=== PATIENT | female | born 1995 | race Caucasian/White ===

== ENCOUNTER 2021-05-27 03:19 | Day surgery (SDC) | payer BC, SELFPAY ==
[2021-05-10 13:42] VITALS: BMI 28.6
[2021-05-27] MEDS: LACTATED RINGERS 1,000 ML 150 ML IV CONT (06:44)
[2021-05-27 06:45] VITALS: BP 115/69; PULSE 107; RESP 18; TEMP 36.6; O2SAT 100
--- NOTE | 2021-05-27 07:06 | WPDANESEPPF ---
Anes - Initial Pre Proc Eval Procedure: Operation Date: 05/27/21 07:30 Proposed Procedures p Esophagogastroduodenoscopy - Prasad Walsh MD Date/Time: 05/27/21 07:06 Surgeon: Prasad Walsh MD Pre Op Diagnosis: GERD Patient Data Age: 26 Gender: F Height: 1.65 m Weight: 78.5 kg Last Vital Signs Temp 36.6 C 05/27/21 06:45 Pulse 107 H 05/27/21 06:45 Resp 18 05/27/21 06:45 BP 115/69 05/27/21 06:45 Pulse Ox 100 05/27/21 06:45 Allergies Allergy/AdvReac Type Severity Reaction Status Date / Time Penicillins Allergy Mild Unknown Verified 05/27/21 06:36 Sulfa (Sulfonamide Allergy Mild unk Verified 05/27/21 06:36 Antibiotics) Home Medications Medication Instructions Recorded Confirmed Type alprazolam 0.5 mg tablet 0.5 mg PO DAILY PRN 04/18/21 05/10/21 History tretinoin 0.05 % topical gel 1 applic TOPICAL QHS 04/18/21 05/10/21 History omeprazole 40 mg capsule,delayed 20 mg PO DAILY cap 04/21/21 05/10/21 History release sertraline 100 mg tablet 100 mg PO DAILY 04/21/21 05/10/21 History sertraline 50 mg tablet 50 mg PO DAILY 04/21/21 05/10/21 History Patient hx anesthesia problems: none Family hx anesthesia problems: none Results Review: All pre-operative results and documents have been reviewed as part of the pre-operative evaluation. [facility] Past Medical History Medical History Allergies Anxiety Social History Social History Smoking status: Never smoker Alcohol intake: current Drinks per week: 5 Substance use: never Living arrangements: with family Spiritual care concerns: No Anes - Eval Final PreProcedure Day of Procedure 05/27/21 07:06 Patient weight: overweight Heart: regular rate and rhythm Lungs: clear to auscultation Airway: Mallampati scale class II Neurological: alert and oriented Last oral intake: >/= 8 hours ASA classification: II Emergent: no Anesthesia type and monitoring: general GIVS and standard monitoring Results Review: All pre-operative results and documents have been reviewed as part of the pre-operative evaluation. Informed Consent: The patient's anesthetic plan and its attendant risks and benefits were discussed with the patient/family/POA. Questions were solicited and answers provided to the satisfaction of the patient/family/POA.
[2021-05-27] MEDS: MIDAZOLAM HCL (*CRX) 2 MG/2 ML VIAL IV PUSH (07:08)
--- NOTE | 2021-05-27 07:21 | PM.HPGS ---
History of Present Illness History of Present Illness Consent: Risks, benefits, and alternatives have been discussed and questions answered. Patient agrees to proceed with procedure. Chief complaint: GERD Narrative: Lynnette Lucio is a 26 year old female with gerd on omeprazole Review of Systems Constitutional: Constitutional: Denies headache(s) and Denies weakness Eyes: Eyes: Denies blurry vision ENT: Reports Normal hearing present, Denies headache(s) and Denies neck pain Cardiovascular: Cardiovascular: Denies chest pain and Denies dyspnea Respiratory: Respiratory: Denies dyspnea Gastrointestinal: Gastrointestinal: Reports no additional gastrointestinal complaints Genitourinary: Genitourinary: Denies dysuria Musculoskeletal: Musculoskeletal: Denies neck pain Integumentary/Breasts: Skin/Breast: Denies dry skin Neurologic: Reports Normal hearing present, Denies headache(s) and Denies weakness Psychiatric: Psychiatric: Denies anxiety Endocrine: Endocrine: Denies change in body appearance Hematologic/Lymphatic: Hematologic/Lymphatic: Denies easy bleeding Allergic/Immunologic: Allergic/Immunologic: Denies urticaria PMFSH Past Medical History Medical History Allergies Anxiety Social History Social History Smoking status: Never smoker Alcohol intake: current Drinks per week: 5 Substance use: never Living arrangements: with family Spiritual care concerns: No Meds Home Medications and Allergies Home Medications Medication Instructions Recorded Confirmed Type alprazolam 0.5 mg tablet 0.5 mg PO DAILY PRN 04/18/21 05/10/21 History tretinoin 0.05 % topical gel 1 applic TOPICAL QHS 04/18/21 05/10/21 History omeprazole 40 mg capsule,delayed 20 mg PO DAILY cap 04/21/21 05/10/21 History release sertraline 100 mg tablet 100 mg PO DAILY 04/21/21 05/10/21 History sertraline 50 mg tablet 50 mg PO DAILY 04/21/21 05/10/21 History Allergies Allergy/AdvReac Type Severity Reaction Status Date / Time Penicillins Allergy Mild Unknown Verified 05/27/21 06:36 Sulfa (Sulfonamide Allergy Mild unk Verified 05/27/21 06:36 Antibiotics) Vital Signs Vital Signs - 24 hr 05/27/21 06:45 Temperature 98 F Pulse Rate 107 H Respiratory Rate 18 Blood Pressure 115/69 Pulse Oximetry 100 Exam Const: General: comfortable and no acute distress HENMT: General nose exam: Normal nares present Eyes: General: appearance normal, both eyes and all related structures Neck: Neck: no JVD Resp: Auscultation: clear to auscultation bilaterally Cardio: Rate: regular rate Rhythm: regular rhythm GI: Inspection: non-distended GI Palp: Yes Soft to palpation Skin: General skin exam: normal color Neuro: General: gait normal Speech: normal speech Extrem: General: normal to inspection Psych: Mental Status: mental status grossly normal Assessment and Plan Assessment and plan (1) GERD (gastroesophageal reflux disease): Code(s): K21.9 - Gastro-esophageal reflux disease without esophagitis Status: Acute Assessment and Plan: egd with bx
[2021-05-27 07:44] VITALS: BP 101/68; PULSE 79; RESP 22; O2SAT 99
[2021-05-27 07:54] VITALS: BP 111/71; PULSE 78; RESP 24; O2SAT 100
[2021-05-27 08:04] VITALS: BP 114/73; PULSE 73; RESP 21; O2SAT 99
== END 2021-05-27 08:10 | disposition home or self-care (01) ==
PROVIDERS: PCP Nurse Practitioner Adult Health; Visit Provider Internal Medicine Gastroenterology
PROC: 0DJ08ZZ Inspection of Upper Intestinal Tract, Via Natural or Artificial Opening Endoscopic (ICD-10-PCS; CPT 43235; principal; 2021-05-27 07:30)
DX: K21.9 Gastro-esophageal reflux disease without esophagitis (principal); M19.90 Unspecified osteoarthritis, unspecified site
CPT/HCPCS: 43239; 88305; J2250; J2704; J7120

== ENCOUNTER 2022-08-09 10:21 | Outpatient (CLI) | payer BC, SELFPAY ==
[2022-08-09 11:38] LABS: Hematocrit 38.6 % (37.0-47.0); Hemoglobin 13.2 g/dL (12.0-15.0); Mean Corpuscular HGB Conc 34.2 g/dl (32-36); Mean Corpuscular Hemoglobin 29.8 pg (26-34); Mean Corpuscular Volume 87.1 fl (80-100); Mean Platelet Volume 10.2 fl (7.4-10.4); Platelet Count Result 211 k/mm3 (150-375); Red Blood Count 4.43 M/mm3 (4.2-5.4); Red Cell Distribution Width 11.9 % (11.5-14.5)
[2022-08-09 11:54] LABS: Alanine Aminotransferase 20 U/L (6-35); Albumin Level 4.5 g/dL (3.5-5.1); Alkaline Phosphatase 47 U/L (38-126); Anion Gap 6 mmol/L (8-16); Aspartate Amino Transferase 24 U/L (14-36); Bilirubin,Total 0.4 mg/dL (0.2-1.3); Blood Urea Nitrogen 12 mg/dL (7-17); CRP < 0.5 mg/dL (<1.0); Carbon Dioxide 29 mmol/L (22-30); Chloride 98 mmol/L (98-107); Estimated Glomerular Filt Rate > 60; Glucose 78 mg/dL (65-110); Potassium 3.5 mmol/L (3.4-5.0); Sodium 133 mmol/L (137-145)
[2022-08-09 12:47] LABS: Erythrocyte Sedimentation Rate 9 mm/hr (0-20)
== END 2022-08-09 10:22 | disposition home or self-care (01) ==
LOC: ANHLAB 10:23
PROVIDERS: Visit Provider Nurse Practitioner
DX: K58.0 Irritable bowel syndrome with diarrhea (principal)
CPT/HCPCS: 36415; 80053; 84443; 85027; 85652; 86140

== ENCOUNTER 2022-08-16 13:17 | Outpatient (NON) | payer BC, SELFPAY ==
[2022-08-23 23:57] LABS: Calprotectin, Stool 24 mcg/g
[2022-08-24 16:08] LABS: Pancreatic Elastase, Stool 262 mcg/g
== END 2022-08-16 13:18 | disposition home or self-care (01) ==
LOC: ANHLAB 13:19
PROVIDERS: Visit Provider Nurse Practitioner
DX: K58.0 Irritable bowel syndrome with diarrhea (principal)
CPT/HCPCS: 82653; 83993

== ENCOUNTER 2022-11-14 17:04 | Outpatient (CLI) | payer BC, SELFPAY ==
[2022-11-14 18:51] LABS: HIV 1/2 Ab P24 Ag Result Negative (Negative)
[2022-11-14 19:59] LABS: Hepatitis B Surface Antigen Negative (Negative); Rubella IgG Antibody 18.2 IU/ML
[2022-11-15 13:48] LABS: Rapid Plasma Reagin Non-Reactive (NonReactive)
[2022-11-17 09:19] LABS: CMV IgG Antibody <0.60 U/mL (<0.60)
== END 2022-11-14 17:05 | disposition home or self-care (01) ==
PROVIDERS: Visit Provider Student in an Organized Health Care Education/Training Program
DX: N94.89 Other specified conditions associated with female genital organs and menstrual cycle (principal)
CPT/HCPCS: 36415; 84702; 86592; 86644; 86703; 86747; 86762; 86787; 86850; 87086; 87088; 87340; G0432

== ENCOUNTER 2022-12-19 14:00 | Outpatient (CLI) | payer BC, SELFPAY ==
[2022-12-19 14:31] LABS: Basophils Percent Auto 0.3 % (0.2-1.2); Eosinophils Absolute Auto 0.1 K/mm3 (0-0.3); Eosinophils Percent Auto 1.1 % (0-4.4); Hematocrit 35.2 % (37.0-47.0); Hemoglobin 12.1 g/dL (12.0-15.0); Immature Granulocyte Absolute 0.02 K/mm3 (0.00-0.031); Immature Granulocyte Percent A 0.3 % (0-0.5); Lymphocytes Absolute Auto 1.35 K/mm3 (0.9-3.2); Lymphocytes Percent Auto 22.1 % (18.3-44.2); Mean Corpuscular HGB Conc 34.4 g/dl (32-36); Mean Corpuscular Hemoglobin 29.8 pg (26-34); Mean Corpuscular Volume 86.7 fl (80-100); Mean Platelet Volume 10.4 fl (7.4-10.4); Monocytes Absolute Auto 0.3 K/mm3 (0.1-0.6); Monocytes Percent Auto 5.4 % (2.6-8.5); Neutrophils Absolute Auto 4.3 K/mm3 (1.3-6.7); Neutrophils Percent Auto 70.8 % (45.5-73.1); Platelet Count Result 176 k/mm3 (150-375); Red Blood Count 4.06 M/mm3 (4.2-5.4); Red Cell Distribution Width 12.5 % (11.5-14.5); White Blood Count 6.1 K/mm3 (4.5-10.0)
== END 2022-12-19 14:01 | disposition home or self-care (01) ==
LOC: ANHLAB 14:02
PROVIDERS: Visit Provider Student in an Organized Health Care Education/Training Program
DX: N94.89 Other specified conditions associated with female genital organs and menstrual cycle (principal)
CPT/HCPCS: 36415; 85025; 86900; 86901

== ENCOUNTER 2023-04-20 15:01 | Outpatient (CLI) | payer BC, SELFPAY ==
[2023-04-20 16:47] LABS: Basophils Percent Auto 0.2 % (0.2-1.2); Eosinophils Absolute Auto 0.1 K/mm3 (0-0.3); Eosinophils Percent Auto 0.6 % (0-4.4); Hematocrit 32.4 % (37.0-47.0); Hemoglobin 11.2 g/dL (12.0-15.0); Immature Granulocyte Absolute 0.05 K/mm3 (0.00-0.031); Immature Granulocyte Percent A 0.5 % (0-0.5); Lymphocytes Absolute Auto 1.41 K/mm3 (0.9-3.2); Lymphocytes Percent Auto 13.9 % (18.3-44.2); Mean Corpuscular HGB Conc 34.6 g/dl (32-36); Mean Corpuscular Hemoglobin 30.6 pg (26-34); Mean Corpuscular Volume 88.5 fl (80-100); Mean Platelet Volume 10.5 fl (7.4-10.4); Monocytes Absolute Auto 0.6 K/mm3 (0.1-0.6); Neutrophils Percent Auto 78.8 % (45.5-73.1); Platelet Count Result 158 k/mm3 (150-375); Red Blood Count 3.66 M/mm3 (4.2-5.4); Red Cell Distribution Width 12.7 % (11.5-14.5); White Blood Count 10.2 K/mm3 (4.5-10.0)
[2023-04-20 16:56] LABS: Glucose 1 Hour PP 50gm Dose 91 mg/dL
[2023-04-20 17:38] LABS: HIV 1/2 Ab P24 Ag Result Negative (Negative)
== END 2023-04-20 15:02 | disposition home or self-care (01) ==
LOC: ANHLAB 15:03
PROVIDERS: Visit Provider Obstetrics & Gynecology
DX: Z34.90 Encounter for supervision of normal pregnancy, unspecified, unspecified trimester (principal)
CPT/HCPCS: 36415; 82947; 85025; 86703; G0432

== ENCOUNTER 2023-06-22 01:28 | Inpatient (IN) | payer BC, SELFPAY ==
[2023-06-22] VITALS (177 sets, daily range): BP systolic 94–141; BP diastolic 48–88; PULSE 75–141; RESP 18; TEMP 36.3–37.4; O2SAT 95–100; BMI 29.9
--- NOTE | 2023-06-22 02:14 | OBADM ---
This patient, Lynnette Lucio, admitted to the OB room Labor/Delivery/Recovery 107 for observation. Patient/family oriented to hospital policies and general routines including ID bracelet, bed and alarms, visiting hours, pain management, procedures, bathroom and other care routines, personal items, smoking policy, room service/diet, and visiting hours. Patient/Family are encouraged to report perceived risks to care and to ask questions if they do not understand what they are told or what they should do.
--- NOTE | 2023-06-22 03:12 | LDADM ---
This patient, Lynnette Lucio, was admitted to Labor/Delivery/Recovery 107 on 06/22/23 at 02:43. Plans for labor, pain management and were discussed with patient. Patient/family oriented to hospital policies and general routines including ID bracelet, bed and alarms, visiting hours, pain management, procedures, bathroom and other care routines, personal items, smoking policy, room service/diet and guest tray routines, security routines, and visiting hours. Patient/Family are encouraged to report perceived risks to care and to ask questions if they do not understand what they are told or what they should do. See OBIX for further documentation.
[2023-06-22 03:21] LABS: Basophils Percent Auto 0.2 % (0.2-1.2); Eosinophils Percent Auto 0.3 % (0-4.4); Hematocrit 37.5 % (37.0-47.0); Hemoglobin 12.5 g/dL (12.0-15.0); Immature Granulocyte Absolute 0.12 K/mm3 (0.00-0.031); Immature Granulocyte Percent A 0.9 % (0-0.5); Lymphocytes Absolute Auto 2.12 K/mm3 (0.9-3.2); Mean Corpuscular HGB Conc 33.3 g/dl (32-36); Mean Corpuscular Hemoglobin 28.9 pg (26-34); Mean Corpuscular Volume 86.8 fl (80-100); Mean Platelet Volume 10.5 fl (7.4-10.4); Monocytes Absolute Auto 0.8 K/mm3 (0.1-0.6); Monocytes Percent Auto 5.5 % (2.6-8.5); Neutrophils Percent Auto 78.1 % (45.5-73.1); Platelet Count Result 175 k/mm3 (150-375); Red Blood Count 4.32 M/mm3 (4.2-5.4); Red Cell Distribution Width 13.2 % (11.5-14.5); White Blood Count 14.1 K/mm3 (4.5-10.0)
[2023-06-22] MEDS: VANCOMYCIN 1,000 MG/NS 250 ML 1,000 MG/250 ML BAG 250 MG IVPB ×2 (04:45→16:20)
[2023-06-22] MEDS: LACTATED RINGERS 1,000 ML 125 ML IV CONT ×3 (04:45→13:05)
[2023-06-22] MEDS: OXYTOCIN 30 UNITS/NS 500 ML 30 UNITS/500 ML BAG 6 UNITS IV CONT ×2 (08:12→19:29)
--- NOTE | 2023-06-22 09:33 | WPDANESEPP ---
Anes - Eval Pre Procedure Procedure: labor pain managment Date/Time: 06/22/23 09:33 Surgeon: Ethan Preop Diagnosis: pain during labor Pre Op Diagnosis: Leaking Fluid Patient Data Age: 28 Gender: F Height: 1.65 m Weight: 81.647 kg Last Vital Signs Pulse 118 H 06/22/23 09:30 BP 111/70 06/22/23 09:30 O2 Del Method Room Air 06/22/23 03:06 Allergies Allergy/AdvReac Type Severity Reaction Status Date / Time Penicillins Allergy Mild Unknown Verified 06/19/23 08:19 Sulfa (Sulfonamide Allergy Mild unk Verified 06/19/23 08:19 Antibiotics) Home Medications Medication Instructions Recorded Confirmed Type bupropion HCl 150 mg 24 hr tablet, 150 mg PO QAM 08/09/22 06/22/23 History extended release sertraline 100 mg tablet 200 mg PO DAILY 11/13/22 06/22/23 History hydroxyzine HCl 25 mg tablet 25 mg PO TID PRN anxiety #30 tabs 12/11/22 06/22/23 Rx RSV vac, preF A and preF B(PF) 120 0.5 ml IM ONCE #1 ea 05/29/23 06/22/23 Rx mcg/0.5 mL IM solution (Abrysvo) Laboratory Tests 06/22/23 03:02 WBC 14.1 H K/mm3 (4.5-10.0) RBC 4.32 M/mm3 (4.2-5.4) Hgb 12.5 g/dL (12.0-15.0) Hct 37.5 % (37.0-47.0) MCV 86.8 fl (80-100) MCH 28.9 pg (26-34) MCHC 33.3 g/dl (32-36) RDW 13.2 % (11.5-14.5) Plt Count 175 k/mm3 (150-375) MPV 10.5 H fl (7.4-10.4) Immature Gran % (Auto) 0.9 H % (0-0.5) Neut % (Auto) 78.1 H % (45.5-73.1) Lymph % (Auto) 15.0 L % (18.3-44.2) Sully % (Auto) 5.5 % (2.6-8.5) Eos % (Auto) 0.3 % (0-4.4) Baso % (Auto) 0.2 % (0.2-1.2) Lymph # (Auto) 2.12 K/mm3 (0.9-3.2) Sully # (Auto) 0.8 H K/mm3 (0.1-0.6) Eos # (Auto) 0.0 K/mm3 (0-0.3) Baso # (Auto) 0.0 K/mm3 (0.0-0.1) Abs Immat Gran (auto) 0.12 H K/mm3 (0.00-0.031) Absolute Neuts (auto) 11.0 H K/mm3 (1.3-6.7) Absolute Nucleated RBC 0.0 K/mm3 (0.0-0.012) Nucleated RBC % 0.0 % (0.0-0.2) RPR Pending Blood Type A Positive Antibody Screen Negative Patient hx anesthesia problems: none Family hx anesthesia problems: none Results Review: All pre-operative results and documents have been reviewed as part of the pre-operative evaluation. [facility] Past Medical History Medical History Allergies Anxiety Anxiety Irritable bowel syndrome with diarrhea Suppression of menses Family History Family History Grandparent Carcinoma of colon Hypertension Heart disease Social History Social History Smoking status: Never smoker Second hand tobacco smoke exposure: No Alcohol intake: current Drinks per week: 5 Substance use: never Lack of Transportation: No Lack of Food: Never True Current Housing: I Have Housing Concerned About Future Housing: No Difficulty Paying Gas/Electric Bills: No Difficulty Paying for Meds: No Currently Unemployed: No Education: Master's Degree or Higher Difficulty w/ Childcare or Family Care: No Living arrangements: with family Occupation/Education: occupation Gender identity (if verbalized by the patient): Female Sexual Orientation (if Verbalized by the Patient): Straight or Heterosexual Spiritual care concerns: No Exam Day of Procedure 06/22/23 09:33
[2023-06-22 14:01] LABS: Rapid Plasma Reagin Non-Reactive (NonReactive)
--- NOTE | 2023-06-22 19:34 | WPDHPUPDATE1 ---
History and Physical Update Update Date/Time: 06/22/23 19:34 History and Physical has been reviewed, including an updated exam of the patient. There are NO changes in the patient's condition. Risks, benefits, and alternatives have been discussed and questions answered. Patient agrees to proceed with procedure.
--- NOTE | 2023-06-22 19:34 | WPDOBADMIT ---
Obstetrics - Admit Note Admission Note: record reviewed. No pertinent additions to the history and/or any subsequent changes in the physical findings that are not consistent with the expected course of the were found. Additions to the history and/or subsequent changes in the physical findings follow. None.
--- NOTE | 2023-06-22 19:34 | PM.OBPRVD ---
OB - Vaginal Delivery Note Procedure Delivery date: 06/22/23 Events: Premature Rupture of Membranes Induction method: None Delivery augmentation: Rupture of Membranes and Pitocin Delivery monitor: External FHT and Internal Uterine Route of delivery: Episiotomy description: None Laceration Description: Perineal - 2nd Degree Delivery repair: chromic Specimen: Yes Quantitative Blood Loss (ml): 300 Anesthesia type: Epidural Disposition: Floor Complications: No immediate complications Narrative: Patient was prepped and draped in the usual manner this procedure. Maternal expulsive efforts readily delivered vertex and nuchal cord was noted. Baby was delivered through the cord without difficulty, cord was clamped and cut, baby was placed on maternal abdomen. Placenta delivered spontaneously. Uterus was well contracted. Cervix vagina vulva were inspected with second-degree laceration noted. This was approximated using 2-0 chromic and a vaginal tissue running interlocking manner with good approximation noted, subcuticular stitch was then used to approximate the perineum. This point procedure was considered terminated with immediate postop condition of mother baby but excellent. Baby Weeks of gestation at delivery: 36 Infant gender: Male Weight (pounds): 7 Weight (ounces): 5 presentation: vertex position: Right Occiput Anterior Placenta delivery description: Spontaneous Cord Vessel Description: 3 Vessels, Nuchal Cord and Loose score one minute: 7 score five minutes: 9 AMG Delivery Billing Delivery Delivery: Delivery Charge
[2023-06-22] MEDS: IBUPROFEN 600 MG TABLET PO (21:23)
--- NOTE | 2023-06-22 22:00 | OBPPTRN ---
Patient transferred to post room #282 via wheelchair. Support person present. Oriented to unit, room, information board, rooming in, admission packet and security measures. Patient verbalizes understanding.
[2023-06-23 04:00] VITALS: BP 112/72; PULSE 95; RESP 18; TEMP 36.6; O2SAT 100
[2023-06-23 04:48] LABS: Hematocrit 30.4 % (37.0-47.0); Hemoglobin 10.2 g/dL (12.0-15.0)
--- NOTE | 2023-06-23 07:57 | P.DS_ITS ---
DS: Admitting Diagnosis Discharge Date 06/24/2023 Admitting Diagnosis OB - DS: Summary OB Procedures : None OB Procedures Intrapartum: Spontaneous Vag Delivery OB Procedures: : None Peripartum Data Laceration Description: Perineal - 2nd Degree Episiotomy description: None Time Spent with Patient Time attestation: Total time spent providing and/or coordinating discharge services: DS: Data Data Completed and Pending Labs on day of discharge: Labs from last 24 hours 06/23/23 06/22/23 03:34 03:02 Hgb 10.2 L Hct 30.4 L RPR Non-reactive Discharge Plan Discharge Discharging Clinician: Gopal Mooney Patient Disposition: Home, Self-Care Activity: as tolerated Diet: as tolerated Patient Instructions: Antibiotic Form Stand Alone Forms: General Discharge Information Follow-up/Referrals: Amarilis Long MD [Physician] - 3 Weeks Discharge Medications: New ibuprofen 600 mg Tablet 600 mg PO Q6H PRN (Reason: Cramping) Qty: 30 0RF Continued sertraline 100 mg tablet 200 mg PO DAILY bupropion HCl 150 mg tablet extended release 24 hr 150 mg PO QAM Abrysvo 120 mcg/0.5 mL recon soln 0.5 ml IM ONCE Qty: 1 0RF Rx Instructions: as a single dose hydroxyzine HCl 25 mg tablet 25 mg PO TID PRN (Reason: anxiety) Qty: 30 0RF Date of admission: 06/22/23 02:43 Primary Care Provider: PHYSICIAN,WAFER MACHINE OPERATOR Admitting Provider: Amarilis Long Attending physician on admission: Amarilis Long Condition: Stable
[2023-06-23 09:45] VITALS: BP 118/80; PULSE 82; RESP 18; TEMP 36.5; O2SAT 100
[2023-06-23] MEDS: IBUPROFEN 600 MG TABLET PO ×2 (09:54→16:44)
[2023-06-23] MEDS: MULTIVIT/MIN/PREN/FOL AC/IRON TABLET 1 TAB PO (09:54)
[2023-06-23] MEDS: buPROPion HCL XL (24 HR) 150 MG TABCR PO (09:55)
[2023-06-23 11:46] VITALS: BP 113/77; PULSE 102; RESP 20; TEMP 36.6; O2SAT 99
--- NOTE | 2023-06-23 13:54 | WPDANLDPN2 ---
Anes-Prog Note L&D Date/Time: 06/23/23 13:54 Comfortable throughout: labor and delivery Neuraxial method: epidural Epidural/Spinal procedure site: clean & non-tender Neuro status: Neuro function grossly intact. Cardiovascular status: normal Respiratory status: normal Airway patency: baseline Mental status: baseline Post-Op hydration status: normal Vital Signs: Last Vital Signs Temp 36.6 C 06/23/23 11:46 Pulse 102 H 06/23/23 11:46 Resp 20 06/23/23 11:46 BP 113/77 06/23/23 11:46 Pulse Ox 99 06/23/23 11:46 O2 Del Method Room Air 06/23/23 11:46 Pain score (VAS): 3 I/O: Intake & Output 06/22/23 06/23/23 06/23/23 23:59 07:59 15:59 Intake Total 500 Output Total 432 Balance 68 Post-procedural complaints: none Patient feedback: Patient satisfied with anesthetic care.
[2023-06-23 19:30] VITALS: BP 115/72; PULSE 91; RESP 18; TEMP 36.6; O2SAT 100
[2023-06-24] MEDS: IBUPROFEN 600 MG TABLET PO ×4 (01:20→23:14)
[2023-06-24] MEDS: SERTRALINE HCL 50 MG TABLET 200 MG PO ×2 (01:20→23:14)
[2023-06-24 08:00] VITALS: BP 113/76; PULSE 85; RESP 16; TEMP 36.4; O2SAT 100
[2023-06-24] MEDS: MULTIVIT/MIN/PREN/FOL AC/IRON TABLET 1 TAB PO (09:51)
[2023-06-24] MEDS: buPROPion HCL XL (24 HR) 150 MG TABCR PO (09:51)
[2023-06-24] MEDS: DOCUSATE SODIUM 100 MG CAPSULE PO (09:51)
[2023-06-24 20:00] VITALS: BP 115/66; PULSE 98; RESP 18; TEMP 36.9; O2SAT 100
[2023-06-25] MEDS: IBUPROFEN 600 MG TABLET PO (05:23)
[2023-06-25] MEDS: MULTIVIT/MIN/PREN/FOL AC/IRON TABLET 1 TAB PO (07:19)
--- NOTE | 2023-06-25 07:45 | PC.NURSE ---
0600 Patient viewed the discharge video Mother & Baby Care, The First Two Weeks . Patient was given the opportunity and encouraged to ask questions. Patient verbalized understanding of information shared and has been given the mother/baby guide for home reference.
[2023-06-25 08:00] VITALS: BP 122/71; PULSE 70; RESP 16; TEMP 37.3; O2SAT 100
--- NOTE | 2023-06-25 13:17 | PC.NURSE ---
[id number] Introductions were made, then consulted with patient to assess needs related to . Discussed with mother her?plans to feed?her infant, the?experience so far and encouraged [id number], stimulation, checking the diaper to encourage after mother is finished with her breakfast. Resources provided for inpatient with name written on the communication board. Mother voiced understanding of information and will call if there is a request for assistance. [phone] RN purposefully rounded to assist with . Encouraged understanding of the benefits of skin to skin (demonstrating unwrapping and placing upright on her chest), stimulating with massage touch, changing positions to encourage wakefulness, how to watch for early feeding cues, responsive feeding, feeding on demand (aiming for 8-12 times in 24 hours, about every 2-3 hours), milk production, building/maintaining a milk supply, duration of feeding, signs of adequate intake/output and how to record on the feeding sheet. Mother works well with her infant with encouragement and education. Reviewed positioning and ear, shoulder, hip alignment, supporting the breast to facilitate a deep latch, asymmetrical latch (off-center), leading with the chin with a big, open, wide gape and body close to mother. latched optimally to the right breast in cross cradle position, then the left breast using cross cradle. Education given to the parents of how to visualize the suckling (with good rocking jaw motion), swallows (dropping of the lower jaw) and how to listen for drinking at the breast (the ka sound). was able to maintain latch without pain to mother protecting the nipple with optimal positioning and latching. Reviewed comfort measures of healing with a warm, wet washcloth to rinse breast, then leave open to air-dry, good handwashing when or touching the breast/nipples to prevent infection. has had appropriate feedings in the last 24 hours meets the outcomes for weight, output, blood sugar and jaundice at this time. Mother states she is confident to continue effectively her at home, when to call for assistance, denies any additional assistance or education at this time. Reinforced understanding of milk production, transition of milk, signs of adequate intake, transition of stool, prevention/relief of engorgement, plugged ducts, mastitis, responsive watching for feeding cues, the different methods of stimulating infant to breastfeed 1-3 hours after the start of the last feeding, community resources, medication information reviewed per [employer] and when to call a provider using the resource of the mom and baby guide. Mother voiced understanding of the education shared and states she has family and friends as resources.
[2023-06-26 14:56] VITALS: BP 108/68; PULSE 78; RESP 18; TEMP 36.7; O2SAT 100
== END 2023-06-25 12:25 | disposition home or self-care (01) | DRG 807 ==
LOC: ANHLDR 01:36 → ANHOB2 06-23 07:58 → ANHLDR 06-26 11:05 → ANHOB2 06-26 11:05
PROVIDERS: Admitting Provider Obstetrics & Gynecology; Visit Provider Obstetrics & Gynecology
DX: O42.913 Preterm premature rupture of membranes, unspecified as to length of time between rupture and onset of labor, third trimester (principal); Z37.0 Single live birth; O70.1 Second degree perineal laceration during delivery; O69.81X0 Labor and delivery complicated by cord around neck, without compression, not applicable or unspecified; Z3A.36 36 weeks gestation of pregnancy
CPT/HCPCS: 36415; 84112; 85014; 85018; 85025; 86592; 86850; 86900; 86901; 88307; A9270; J2590; J2795; J3370; J7120

== ENCOUNTER 2024-05-16 11:14 | Outpatient (CLI) | payer BC, SELFPAY ==
[2024-05-16 11:33] LABS: Hematocrit 38.3 % (37.0-47.0); Hemoglobin 13.2 g/dL (12.0-15.0); Mean Corpuscular HGB Conc 34.5 g/dl (32-36); Mean Corpuscular Hemoglobin 28.6 pg (26-34); Mean Corpuscular Volume 83.1 fl (80-100); Mean Platelet Volume 10.2 fl (7.4-10.4); Platelet Count Result 218 k/mm3 (150-375); Red Blood Count 4.61 M/mm3 (4.2-5.4); Red Cell Distribution Width 12.9 % (11.5-14.5); White Blood Count 5.3 K/mm3 (4.5-10.0)
[2024-05-16 11:51] LABS: Alanine Aminotransferase 18 U/L (6-35); Albumin Level 4.4 g/dL (3.5-5.1); Alkaline Phosphatase 44 U/L (38-126); Anion Gap 10 mmol/L (4-12); Aspartate Amino Transferase 23 U/L (14-36); Bilirubin,Total 0.3 mg/dL (0.2-1.3); Blood Urea Nitrogen 11 mg/dL (7-17); Carbon Dioxide 25 mmol/L (22-30); Chloride 105 mmol/L (98-107); Cholesterol 218 mg/dL (0-200); Estimated Glomerular Filt Rate > 60; Glucose 90 mg/dL (65-110); HDL Direct 60 mg/dL; Sodium 140 mmol/L (137-145); Triglycerides 41 mg/dL (<150)
[2024-05-16 12:01] LABS: LDL Cholesterol Direct 124 mg/dL
[2024-05-16 12:19] LABS: Iron 50 ug/dL (37-170)
[2024-05-16 12:28] LABS: Percent Iron Saturation 16 % (20-50)
[2024-05-16 12:37] LABS: Free T4 Free Thyroxine 1.07 ng/mL (0.78-2.19)
== END 2024-05-16 11:15 | disposition home or self-care (01) ==
LOC: ANHLAB 11:15
PROVIDERS: PCP Nurse Practitioner Adult Health; Visit Provider Nurse Practitioner Adult Health
DX: D64.9 Anemia, unspecified (principal); Z13.9 Encounter for screening, unspecified
CPT/HCPCS: 36415; 80053; 80061; 82607; 82728; 83540; 83550; 84439; 84443; 85027

== ENCOUNTER 2024-08-30 13:59 | Outpatient (RCR) | payer BC, SELFPAY ==
--- OUTSIDE RECORDS SUMMARY | 2024-08-30 14:02 | XMS_ITS ---
Author Organization [facility] [employer] Address [address] [facility] [address] [place] [address] Care Team Providers Care Mass Spectrometry Specialist Name Role Phone Chary Syed Unavailable [phone] REASON FOR VISIT RE:Refills Medications Medication SIG (Take, Route, Frequency, Duration) Notes Start Date End Date Status Amphetamine-Dextroamphet ER 10 MG 1 capsule in the morning Oral Once a day for 30 days 02/14/2024 Active Social History Sex Assigned At : Social History Observation Description Sex Assigned At Female Encounters Encounter Location Date Provider Diagnosis [facility] [employer] [facility] [address] [place] [address] [address] [facility] [address] [place] [address] 03/13/2024 Chary Syed Plan Of Treatment Medication Medication Name Sig Start Date Stop Date Notes Amphetamine-Dextroamphet ER 10 MG 1 capsule in the morning Oral Once a day for 30 days 02/14/2024 Progress Notes * PREETI VAZQUEZDOB:1995 (28 yo F)Acc No.[id number]:03/13/2024 Patient: PREETI MICHAUD :1995 A ge:28 Y S ex:Female Address:[address] [place], [place] [address], [address] * Refills Refill Amphetamine-Dextroamphet ER Capsule Extended Release 24 Hour, 10 MG, Oral, 30, 1 capsule in the morning, Once a day, 30 days, Refills=0 * true * Date: Generated for Katheryn wells/Jose/eTransmitting on: 0 08/30/2024 02:02 PM REGIONAL TANKER TRUCK DRIVER
--- OUTSIDE RECORDS SUMMARY | 2024-08-30 14:02 | XMS_ITS | CCD ---
Author Organization [facility] [place] [address] [place] [address] Care Team Providers Care Broach Operator Name Role Phone Unavailable Primary Care Provider Unavailabl e Social History Tobacco Use Types Packs/Day Years Used Date Smoking Tobacco: Never Assessed Comments Unknown Sex and Gender Information Value Date Recorded Sex Assigned at Not on file Legal Sex Female 8:37 PM PDT Gender Identity Not on file Sexual Orientation Not on file Plan of Treatment Not on file
--- OUTSIDE RECORDS SUMMARY | 2024-08-30 14:02 | XMS_ITS ---
Author Organization [facility] Address [address] [place] [address] Care Team Providers Care Retail Receiving Clerk Name Role Phone Unavailable Unavailable Unavailable Surgery Details Not on file Complications Check Surgery Details section. Procedure Estimated Blood Loss Check Surgery Details section. Procedure Findings Check Surgery Details section. Procedure Specimens Taken Check Surgery Details section.
--- OUTSIDE RECORDS SUMMARY | 2024-08-30 14:02 | XMS_ITS | Clinical Summary ---
Author Organization [facility] Address [address] [place] [address] Care Team Providers Care Wool Hat Forming Machine Tender Name Role Phone Unavailable Primary Care Provider [...]
--- OUTSIDE RECORDS SUMMARY | 2024-08-30 14:02 | XMS_ITS | Referral Summary ---
Author Organization [facility] Address [address] [place] [address] Care Team Providers Care Flat Sheet Maker Name Role Phone Unavailable Primary Care Provider [...]
--- OUTSIDE RECORDS SUMMARY | 2024-08-30 14:02 | XMS_ITS | Clinical Summary ---
Author Organization [facility] Address [address] [place] [address] Care Team Providers Care Factory Maintenance Technician Name Role Phone Erin Murphy PATHOLOGY LABORATORY AIDES TEACHER-DINING ROOM HOSTESS Primary Care Provider + Source Comments [facility],non-owned Affiliates and Associated Physician Practices is amultiple site organization consisting of ambulatory clinics and hospital sitesin [place], [place], [place] and [place]. This disclosure is being madepursuant to the Care Everywhere program and may not contain all information available regarding this patient. Last updated 18.[facility] Allergies Active Allergy Reactions Criticality Noted Date Comments Penicillins Rash Medium 11/04/2018 Social History Tobacco Use Types Packs/Day Years Used Date Smoking Tobacco: Never Assessed Sex and Gender Information Value Date Recorded Sex Assigned at Not on file Gender Identity Not on file Sexual Orientation Not on file Plan of Treatment Health Maintenance Due Date Last Done Comments PAP SMEAR 1995 HIV SCREENING 2010 HEPATITIS C SCREENING 04/20/2013 DTAP/TDAP/TD VACCINES (1 - Tdap) 2014 HEPATITIS B VACCINE (1 of 3 - 19+ 3-dose series) 2014 COVID-19 VACCINE ( - 2023-2 5 season) 2024 INFLUENZA VACCINE (#1) 2024 DEPRESSION SCREENING 07/23/2024 ZOSTER VACCINE (1 of 2) 2045 HIB VACCINE Aged Out No longer eligi ble based on patient's age to complete this topic HPV VACCINE Aged Out No longer eligi ble based on patient's age to complete this topic MENINGOCOCCAL (Group B) VACCINE Aged Out No longer eligible based on patient's age to complete this topic MENINGOCOCCAL VACCINE Aged Out No fredy yimi eligible based on patient's age to complete this topic PNEUMOCOCCAL VACCINE Aged Out No long er eligible based on patient's age to complete this topic Care Teams Factory Maintenance Technician Relationship Specialty Start Date End Date Erin Murphy APRN-DINING ROOM HOSTESS [address] [address] PCP - General 05/30/21
--- OUTSIDE RECORDS SUMMARY | 2024-08-30 14:02 | XMS_ITS | Patient Health Summary ---
Author Organization [facility] Address [address] [place] [address] Care Team Providers Care Plunger Machine Operator Name Role Phone Erin Murphy Primary Care Provider + Note from [facility],non-owned Affiliates and Associated Physician Practices is amultiple site organization consisting of ambulatory clinics and hospital sitesin [place], [place], [place] and [place]. This disclosure is being madepursuant to the Care Everywhere program and may not contain all information available regarding this patient. Last updated 18.[facility] Allergies * Penicillins(Rash) -Medium Criticality Social History Tobacco Use Types Packs/Day Years Used Date Smoking Tobacco: Never Assessed Sex and Gender Information Value Date Recorded Sex Assigned at Not on file Gender Identity Not on file Sexual Orientation Not on file Procedures * SKIN TEST PPD - POINT OF CARE(Performed 11/07/2018) Performed for PPD screening test * GROSS + MICRO EXAM(Performed 12/28/2003) Results * SKIN TEST PPD - POINT OF CARE (11/07/2018 5:09 PM CDT) PPD 0mm Comment:negative Other MISCELLANEOUS SAMPLE S / Unknown 11/07/2018 5:09 PM CDT [facility] - POINT OF CA RE ORDERABLES * GROSS + MICRO EXAM (12/28/2003 9:20 AM CDT) Result CASE NUMBER [id number] [facility] PATH REPORT Comment: ORDERING PHYSICIAN MICKI BELL SPECIMEN TYPE Stomach / Esophagus-Duodenum CLINICAL HISTORY The patient is an 8-year-old girl with a history of abdominal pain who underwent upper endoscopy. GROSS DESCRIPTION The specimen labeled with the patient's name and stomach, esophagus, and duodenum is received fixed in formalin for gross and microscopic examination and consists of six soft, yellow-schumacher tissue fragments ranging in size from 2 to 4 mm in greatest dimension. The specimens are submitted in toto as A . (CT/akn) MICROSCOPIC DESCRIPTION (__ H/E) Sections of the esophagus demonstrate stratified squamous epithelium. There is a very mild intraepithelial mononuclear cell infiltrate. A rare eosinophil is identified. Sections of the stomach demonstrate unremarkable gastric mucosa. There is no evidence of inflammation. The cellularity of the lamina propria is not increased and consists of lymphocytes, plasma cells, eosinophils, and histiocytes. Sections of the duodenum reveal lanceolate duodenal villi with a villous to crypt ratio of 3 1. The cellularity of the lamina propria is increased and consists of plasma cells, lymphocytes, eosinophils, and histiocytes however, there is no evidence of epithelial inflammation. (OI/lw) DIAGNOSIS DIAGNOSIS ESOPHAGUS, BIOPSIES - ESOPHAGITIS, MILD STOMACH, BIOPSIES - NO PATHOLOGIC DIAGNOSIS. DUODENUM, BIOPSIES - NO PATHOLOGIC DIAGNOSIS. This case has been personally reviewed and interpreted by the attending (teaching) pathologist. *ADDENDUM 1 Please note there are 3 H/Es. The slide count was inadvertently left out. (lw) Residential Treatment Counselor Libra Campos RESIDENT IN PATHOLOG Kaia Rodríguez M.D. PATHOLOGIST Leandro Woodard M.D. ELECTRONICALLY JESSICA Leandro Woodard MISCELLANEOUS SAMPLES / Unknown 12/28/2003 9:20 AM CDT 12/28/2003 10:29 AM CDT Historical Provider LAB - PATHOLOGY/C YTOLOGY ORDERABLES [facility] PATH REPORT Care Teams Plunger Machine Operator Relationship Specialty Start Date End Date Erin Murphy APRN-SHORT HAUL DRIVER [address] [employer] [address] [facility] - General 05/30/21
--- OUTSIDE RECORDS SUMMARY | 2024-08-30 14:02 | XMS_ITS | Encounter Summary ---
Author Organization [facility] Address [address] [place] [address] Care Team Providers Care Insurance Claims Supervisor Name Role Phone Unavailable Primary Care Provider Unavailabl e Prior Encounters Date Type Department Care Team Description 08/11/2019 Converted CPS Chart Documents [facility] [address] [employer] [phone] <No scans attached> 08/11/2019 Converted 13x Documents [facility] [address] [employer] [phone] <No scans attached> Plan of Treatment Not on file Procedures Procedure Name Priority Date/Time Associated Diagnosis Comments 16 LIMITED ORAL EVALUATION - PROBLEM FOCUSED Routine 12/31/2020 1:00 AM MDT PANORAMIC RADIOGRAPHIC IMAGE Routine 12/31/2020 1:00 AM MDT Visit Diagnoses Not on file
--- OUTSIDE RECORDS SUMMARY | 2024-08-30 14:02 | XMS_ITS ---
Author Organization [facility] [employer] [facility] Address [facility] [facility] [address] [place] [address] Care Team Providers Care Evaporator Operator Name Role Phone Chary Syed Unavailable [phone] REASON FOR VISIT Refill Medications Medication SIG (Take, Route, Frequency, Duration) Notes Start Date End Date Status Amphetamine-Dextroamphet ER 10 MG 1 capsule in the morning Oral Once a day for 30 days 03/17/2024 Active Social History Sex Assigned At : Social History Observation Description Sex Assigned At Female Encounters Encounter Location Date Provider Diagnosis [facility] [employer] [facility] [address] [place] [address] [address] [facility] [address] [place] [address] 03/17/2024 Chary Syed Plan Of Treatment Medication Medication Name Sig Start Date Stop Date Notes Amphetamine-Dextroamphet ER 10 MG 1 capsule in the morning Oral Once a day for 30 days 03/17/2024 Progress Notes * PREETI VAZQUEZDOB:1995 (28 yo F)Acc No.[id number]:03/17/2024 Patient: PREETI MICHAUD :1995 A ge:28 Y S ex:Female Address:[address] [place] [address], [address] * Refills Refill Amphetamine-Dextroamphet ER Capsule Extended Release 24 Hour, 10 MG, Oral, 30, 1 capsule in the morning, Once a day, 30 days, Refills=0 * true * Date: Generated for Judyi ng/Fachang/eTransmitting on: 0 08/30/2024 02:02 PM PYROMETALLURGICAL ENGINEER
--- OUTSIDE RECORDS SUMMARY | 2024-08-30 14:02 | XMS_ITS | Referral Summary ---
Author Organization [facility] Address [address] [place] [address] Care Team Providers Care Track Inspector Name Role Phone Erin Murphy WAREHOUSE OPERATIONS ASSOCIATE-HORTICULTURE PROFESSOR Primary Care Provider + Source Comments [facility],non-owned Affiliates and Associated Physician Practices is amultiple site organization consisting of ambulatory clinics and hospital sitesin [place], [place], [place] and [place]. This disclosure is being madepursuant to the Care Everywhere program and may not contain all information available regarding this patient. Last updated 18.[facility] Allergies Active Allergy Reactions Criticality Noted Date Comments Penicillins Rash Medium 11/04/2018 Social History Tobacco Use Types Packs/Day Years Used Date Smoking Tobacco: Never Assessed Sex and Gender Information Value Date Recorded Sex Assigned at Not on file Gender Identity Not on file Sexual Orientation Not on file Plan of Treatment Not on file Administered Medications Care Teams Track Inspector Relationship Specialty Start Date End Date Erin Murphy APRN-ARANZA [address] [address] PCP - General 05/30/21
--- OUTSIDE RECORDS SUMMARY | 2024-08-30 14:03 | XMS_ITS ---
Author Organization [facility] Address [address] [facility] [address] [place] [address] Care Team Providers Care Umbrella Finisher Name Role Phone Chary Syed Unavailable [phone] REASON FOR VISIT RE:Refill Medications Medication SIG (Take, Route, Frequency, Duration) Notes Start Date End Date Status Amphetamine-Dextroamphet ER 10 MG 1 capsule in the morning Oral Once a day for 30 days 04/11/2024 Active Social History Sex Assigned At : Social History Observation Description Sex Assigned At Female Encounters Encounter Location Date Provider Diagnosis [facility] [employer] Business Plan [facility] [address] [facility] [address] [facility] [address] [place] [address] 04/10/2024 Chary Syed Attention-deficit hyperactivity disorder, combined type F90.2 Assessments Encounter Date Diagnosis (ICD Code) Assessment Notes Treatment Notes Treatment Clinical Notes Section Notes 04/10/2024 Attention-deficit hyperactivity disorder, combined type (ICD-10 - F90.2) Plan Of Treatment Medication Medication Name Sig Start Date Stop Date Notes Amphetamine-Dextroamphet ER 10 MG 1 capsule in the morning Oral Once a day for 30 days 04/11/2024 Progress Notes * PREETI VAZQUEZDOB:1995 (28 yo F)Acc No.[id number]:04/10/2024 Patient: PREETI MICHAUD :1995 A ge:28 Y S ex:Female Address:[address] [place], [place] [address], [address] * Refills Refill Amphetamine-Dextroamphet ER Capsule Extended Release 24 Hour, 10 MG, Oral, 30, 1 capsule in the morning, Once a day, 30 days, Refills=0 Subjective: * Chief Complaints: * R E:Refill * Medical History: * Surgical History: * Hospitalization/Major Diagno stic Procedure: * Medications: Objective: * Vitals: * Physical Examination: Assessment: * Assessment: 1. A ttention-deficit hyperactivity disorder, combined type - F90.2 Plan: * Treatment: * Procedure Codes: E RX CONTROLLED SUBSTANCE ERX * true * Date: Generated for Katheryn wells/Jose/eTransmitting on: 0 08/30/2024 02:02 PM SHIP SCRAPER
[2024-08-30 14:43] LABS: Beta HCG Quantitative 372.86 mIU/ML
== END 2024-11-28 23:59 | disposition home or self-care (01) ==
LOC: ANHLAB 13:59
PROVIDERS: Visit Provider Obstetrics & Gynecology
DX: N91.0 Primary amenorrhea (principal)
CPT/HCPCS: 36415; 84702

== ENCOUNTER 2025-02-25 14:37 | Outpatient (CLI) | payer BC, SELFPAY ==
--- OUTSIDE RECORDS SUMMARY | 2025-02-25 14:45 | XMS_ITS | Clinical Summary ---
Author Organization [facility] Address [address] [place] [address] Care Team Providers Care Bowling Alley Mechanic Name Role Phone Unavailable Primary Care Provider [...]
--- OUTSIDE RECORDS SUMMARY | 2025-02-25 14:45 | XMS_ITS | Clinical Summary ---
Author Organization [facility] Address [address] [address] Care Team Providers Care Grit Blaster Name Role Phone Erin Murphy MEDICAL [employer]ESSIONALS-DRAFTER STRUCTURAL Primary Care Provider + Source Comments [facility],non-owned Affiliates and Associated Physician Practices is amultiple site organization consisting of ambulatory clinics and hospital sitesin [place], [place], [place] and [place]. This disclosure is being madepursuant to the Care Everywhere program and may not contain all information available regarding this patient. Last updated 18.[facility] Allergies Active Allergy Reactions Criticality Noted Date Comments Penicillins Rash Medium 11/04/2018 Social History Tobacco Use Types Packs/Day Years Used Date Smoking Tobacco: Never Assessed Comments Unknown Sex and Gender Information Value Date Recorded Sex Assigned at Not on file Legal Sex Female 4:51 PM CDT Gender Identity Not on file Sexual Orientation Not on file Plan of Treatment Health Maintenance Due Date Last Done Comments HIV SCREENING 2010 HEPATITIS C SCREENING 04/20/2013 DTAP/TDAP/TD VACCINES (1 - Tdap) 2014 HEPATITIS B VACCINE (1 of 3 - 19+ 3-dose series) 2014 PAP SMEAR 2016 HPV VACCINE (1 - 3-dose SCDM series) 2022 COVID-19 VACCINE ( - 2023-2 5 season) 2024 DEPRESSION SCREENING 07/23/2024 INFLUENZA VACCINE (#1) 2025 ZOSTER VACCINE (1 of 2) 2045 HIB VACCINE Aged Out No longer eligi ble based on patient's age to complete this topic MENINGOCOCCAL (Group B) VACC INE SHARED DECISION-MAKING Aged Out No longer eligibl e based on patient's age to complete this topic MENINGOCOCCAL GROUPS A/C/Y/W VACCINE Aged Out No longer eligible b ased on patient's age to complete this topic PNEUMOCOCCAL VACCINE Aged Out No long er eligible based on patient's age to complete this topic Insurance ANTH SELF PAY NO INSURANCE Member Subscriber Plan / Payer (Ef fective for All Dates) Name:Lynnette Lucio Member ID:Not on file Relation to Subscriber:Not on file Name:LYNNETTE LUCIO Subscriber ID:Not on file Address: [address] [place] [phone] Payer ID:Not on file Group ID:Not on file Type:Self Pay Address: [place], [place] Care Teams Grit Blaster Relationship Specialty Start Date End Date Erin Murphy APRN-CNP [address] [facility] [address] [place] [phone] PCP - General 05/30/21
--- OUTSIDE RECORDS SUMMARY | 2025-02-25 14:45 | XMS_ITS | Patient Health Record ---
Author Organization [facility] [employer] [facility] Address [address] [place] [address] Care Team Providers Care Small Arms Artillery Repairer Name Role Phone Chary Syed Unavailable [phone] Allergies Allergen (clinical drug ingredient) Drug/Non Drug Allergy documented on EMR Reaction Allergy Type Onset Date Status sulfamethoxazole / trimethoprim Bactrim Unknown Drug Allergy 11/08/2023 Active Substance with penicillin structure and antibacterial mechanism of action (substance) Penicillins Unknown Drug Allergy 11/08/2023 Active Reason For Referral No Information Medications Medication SIG (Take, Route, Frequency, Duration) Notes Start Date End Date Status buPROPion HCl ER (XL) 150 MG 1 tablet in the morning Oral; Duration: 90 days 11/08/2023 Active Sertraline HCl 100 MG 1 tablet Oral Once a day; Duration: 90 days 11/08/2023 Active hydrOXYzine HCl 25 MG Oral 11/08/2023 Active Cefdinir 300 MG Oral 11/08/2023 Act cookie Tretinoin 0.05 % External 11/08/2023 Ac tive Omeprazole 20 MG Oral 11/08/2023 Ac tive Amphetamine-Dextroamphet ER 10 MG 1 capsule in the morning Oral Once a day; Duration: 30 days 04/11/2024 Active Immunizations Vaccine Route Administration Date Status Comme nts Pfizer Biontech Covid-19 Vac cine 2nd dose Unknown 09/06/2020 Administered Pfizer Biontech Covid-19 Vac cine 2nd dose Unknown 10/04/2020 Administered Pfizer Biontech Covid-19 Vac cine 2nd dose Unknown 07/13/2021 Administered Tdap Unknown 04/23/2023 Administered Social History Sex Assigned At : Social History Observation Description Sex Assigned At Female Section Notes: Do you or have you ever smok ed tobacco?: Never smokerHow much tobacco do you smoke?: NoneDo you or have you ever used any other forms of tobacco or nicotine?: NoDo you or have you ever used e-cigarettes or vape?: Never used electronic cigarettesWhat was the date of your most recent tobacco screening?: 11/08/2023Has tobacco cessation counseling been provided?: NoWhat is your level of alcohol consumption?: NoneHow many years have you consumed alcohol?: 6Have you ever been counseled for unhealthy alcohol use?: NoDo you use any illicit or recreational drugs?: NoWhich illicit or recreational drugs have you used?: NoneHave you used IV drugs?: NoWhat is your level of caffeine consumption?: ModerateEducation and OccupationWhat is the highest grade or level of school you have completed or the highest degree you have received?: Master's degree (e.g., MA, MS, Ger, MEd, WHEAT INSPECTOR, JOHNATHAN)Are you currently in school?: NoAre you currently employed?: YesWho is your employer?: [employer]What is your 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 and SexualityWhat is your relationship status?: MarriedAre you sexually active?: YesDo you use protection during sex?: NoHow many children do you have?: 0Home and EnvironmentAre you a caregiver?: NoDo you have smoke and carbon monoxide detectors in your home?: YesAre you passively exposed to smoke?: NoAre there any smokers in your house?: NoAre there any guns present in your home?: NoDiet and ExerciseWhat type of diet are you following?: RegularLifestyleDo you feel stressed (tense, restless, nervous, or anxious, or unable to sleep at night)?: To some extentDo you use your seat belt or car seat routinely?: YesAdvance DirectiveDo you have an advance directive?: NoDo you have a medical power of regulatory attorney?: NoPublic Health and TravelHave you been to an area known to be high risk for COVID-19?: NoActivities of Daily LivingAre you able to care for yourself?: YesAre you blind or do you have difficulty seeing?: NoAre you deaf or do you have serious difficulty hearing? : NoDo you have difficulty concentrating, remembering or making decisions?: NoDo you have difficulty walking or climbing stairs?: NoDo you have difficulty dressing or bathing?: NoDo you have difficulty doing errands alone?: NoAre you able to walk?: Yes: walks without restrictionsDo you have transportation difficulties?: NoGender Identity and LGBTQ IdentityGender identity: Identifies as FemaleAssigned sex at : FemaleSexual orientation: Straight or heterosexual Problems Problem Type SNOMED Code ICD Code Onset Dates Problem Status W/U Status Risk Notes Problem Mild recurrent major depression (91009177) Major depressive disorder, recurrent, mild (F33.0) 11/08/19 Active confirmed Problem Generalized anxiety disorder (17047673) Generalized anxiety disorder (F41.1) 11/08/19 Active confirmed Problem Attention deficit hyperactivity disorder, combined type (93445024) Attention-deficit hyperactivity disorder, combined type (F90.2) 12/06/19 Active confirmed Problem Long-term current use of drug therapy (323837903) Other detention (current) drug therapy (Z79.899) Active confirmed Problem Obsessive compulsive disorder (170711901) Other obsessive-compuls cookie disorder (F42.8) 11/08/19 24 Active confirmed Encounters Encounter Location Date Provider Diagnosis [facility] [employer] [facility] [address] [facility] [address] [address] 03/13/2024 Chary Syed [facility] [employer] [place] [id number] [facility] [address] [address] 03/17/2024 Chary Syed [facility] [employer] [address] [address] 04/10/2024 Chary Syed Attention-deficit hyperactivity disorder, combined type F90.2 Assessments Encounter Date Diagnosis (ICD Code) Assessment Notes Treatment Notes Treatment Clinical Notes Section Notes 04/10/2024 Attention-deficit hyperactivity disorder, combined type (ICD-10 - F90.2) Plan Of Treatment No Information Insurance Providers Payer Name Payer Address Payer Phone Subscriber Number Group Number Insured Name Patient Relationship to Insured Coverage Start Date Coverage End Date [facility] [address] [place] [address] [id number] PREETI NERI Self - patient is the insured Medical (General) History Medical History History ICD Code Problems: Adult attention deficit hypera ctivity disorder Attention deficit hyperactivity disorder , combined type Chronic post-traumatic stress disorder Generalized anxiety disorder Insomnia due to anxiety and fear Long-term drug therapy Mild recurrent major depression Obsessive-compulsive disorder Social phobia ,
--- OUTSIDE RECORDS SUMMARY | 2025-02-25 14:45 | XMS_ITS | Encounter Summary ---
Author Organization [facility] Address [address] [place] [address] Care Team Providers Care District Leader Name Role Phone Unavailable Primary Care Provider Unavailabl e Prior Encounters Date Type Department Care Team Description 08/11/2019 Converted CPS Chart Documents [facility] [address] [place] [phone] <No scans attached> 08/11/2019 Converted 13x Documents [facility] [address] [place] [phone] <No scans attached> Plan of Treatment Not on file Procedures Procedure Name Priority Date/Time Associated Diagnosis Comments 16 LIMITED ORAL EVALUATION - PROBLEM FOCUSED Routine 12/31/2020 1:00 AM MDT PANORAMIC RADIOGRAPHIC IMAGE Routine 12/31/2020 1:00 AM MDT Visit Diagnoses Not on file
[2025-02-25 16:15] LABS: Hematocrit 26.7 % (37.0-47.0); Hemoglobin 9.1 g/dL (12.0-15.0); Immature Granulocyte Percent A 0.7 % (0-0.5); Lymphocytes Absolute Auto 0.95 K/mm3 (0.9-3.2); Mean Corpuscular HGB Conc 34.1 g/dl (32-36); Mean Corpuscular Hemoglobin 28.9 pg (26-34); Mean Corpuscular Volume 84.8 fl (80-100); Nucleated Red Blood Cells Absolute Auto 0.000 K/mm3 (0.0-0.012); Nucleated Red Blood Cells Perc 0.0 % (0.0-0.2); Platelet Count Result 136 k/mm3 (150-375); Red Blood Count 3.15 M/mm3 (4.2-5.4); White Blood Count 8.1 K/mm3 (4.5-10.0)
[2025-02-25 17:29] LABS: Glucose 1 Hour PP 50gm Dose 116 mg/dL
[2025-02-25 17:57] LABS: Syphilis IgG/IgM Antibody Non-Reactive (Nonreactive)
[2025-02-25 18:11] LABS: HIV 1/2 Ab P24 Ag Result Negative (Negative)
== END 2025-02-25 14:38 | disposition home or self-care (01) ==
LOC: ANHLAB 14:38
PROVIDERS: PCP Nurse Practitioner Adult Health; Visit Provider Obstetrics & Gynecology
DX: Z34.90 Encounter for supervision of normal pregnancy, unspecified, unspecified trimester (principal)
CPT/HCPCS: 36415; 82947; 85025; 86593; 86703; G0432

== ENCOUNTER 2025-04-27 18:56 | Inpatient (IN) | payer BC, SELFPAY ==
[2025-04-27] VITALS (77 sets, daily range): BP systolic 106–150; BP diastolic 62–105; PULSE 72–125; TEMP 36.3–36.4; O2SAT 97–100; BMI 30.4
--- OUTSIDE RECORDS SUMMARY | 2025-04-27 19:24 | XMS_ITS | Encounter Summary ---
Author Organization [facility] Address [address] [place] [address] Care Team Providers Care Human Factors Advisor Lead Name Role Phone Unavailable Primary Care Provider Unavailabl e Prior Encounters Date Type Department Care Team Description 08/11/2019 Converted CPS Chart Documents [facility] [address] [place] [phone] <No scans attached> 08/11/2019 Converted 13x Documents [facility] [address] [place] [phone] <No scans attached> Plan of Treatment Not on file Procedures Procedure Name Priority Date/Time Associated Diagnosis Comments 16 LIMITED ORAL EVALUATION - PROBLEM FOCUSED Routine 12/31/2020 1:00 AM MDT PANORAMIC RADIOGRAPHIC IMAGE Routine 12/31/2020 1:00 AM MDT Visit Diagnoses Not on file
--- OUTSIDE RECORDS SUMMARY | 2025-04-27 19:24 | XMS_ITS | Clinical Summary ---
Author Organization [facility] [employer] Address [address] [facility] [place] [address] Care Team Providers Care Talent Consultant Name Role Phone Erin Murphy CRANE MANAGER-HOUSING RELOCATION Primary Care Provider + Source Comments [facility],non-owned Affiliates and Associated Physician Practices is amultiple site organization consisting of ambulatory clinics and hospital sitesin [place], [place], [place] and [place]. This disclosure is being madepursuant to the Care Everywhere program and may not contain all information available regarding this patient. Last updated 18.[facility] [employer] Allergies Active Allergy Reactions Criticality Noted Date [...] VACCINE (1 - 3-dose SCDM series) 2022 DEPRESSION SCREENING 07/23/2024 COVID-19 VACCINE ( - 2023-2 5 season) 2025 INFLUENZA VACCINE (#1) 2025 ZOSTER VACCINE (1 [...] Name:LYNNETTE LUCIO Subscriber ID:Not on file Address: [address] [place] [phone] Payer ID:Not on file Group ID:Not on file Type:Self Pay Address: [place], [place] Care Teams Talent Consultant Relationship Specialty Start Date End Date Erin Murphy APRN-CNP [address] [facility] [address] [place] [phone] PCP - General 05/30/21
--- OUTSIDE RECORDS SUMMARY | 2025-04-27 19:26 | XMS_ITS | Clinical Summary ---
Author Organization [facility] Health Address [address] [place] [address] Care Team Providers Care Architectural Engineer Name Role Phone Unavailable Primary Care Provider [...]
[2025-04-27 19:45] LABS: Hematocrit 31.8 % (37.0-47.0); Hemoglobin 10.7 g/dL (12.0-15.0); Immature Granulocyte Percent A 0.4 % (0-0.5); Lymphocytes Absolute Auto 1.73 K/mm3 (0.9-3.2); Mean Corpuscular HGB Conc 33.6 g/dl (32-36); Mean Corpuscular Hemoglobin 27.8 pg (26-34); Mean Corpuscular Volume 82.6 fl (80-100); Nucleated Red Blood Cells Absolute Auto 0.000 K/mm3 (0.0-0.012); Nucleated Red Blood Cells Perc 0.0 % (0.0-0.2); Platelet Count Result 168 k/mm3 (150-375); Red Blood Count 3.85 M/mm3 (4.2-5.4); White Blood Count 11.6 K/mm3 (4.5-10.0)
[2025-04-27] MEDS: LACTATED RINGERS 1,000 ML 125 ML IV CONT ×2 (19:47→22:28)
[2025-04-27] MEDS: ceFAZolin 2 GM in SODIUM CHLORIDE 0.9% IV 50 ML 100 ML IVPB (19:48)
--- NOTE | 2025-04-27 19:52 | LDADM ---
This patient, Lynnette Lucio, was admitted to Labor/Delivery/Recovery 106 on 04/27/25 at 18:56. Plans for labor, pain management and were discussed with patient. Patient/family oriented to hospital policies and general routines including ID bracelet, bed and alarms, visiting hours, pain management, procedures, bathroom and other care routines, personal items, smoking policy, room service/diet and guest tray routines, security routines, and visiting hours. Patient/Family are encouraged to report perceived risks to care and to ask questions if they do not understand what they are told or what they should do. See [facility] for further documentation.
[2025-04-27 20:27] LABS: Syphilis IgG/IgM Antibody Non-Reactive (Nonreactive)
[2025-04-27 20:30] LABS: Hepatitis B Surface Antigen Negative (Negative)
--- NOTE | 2025-04-27 20:57 | WPDANESEPP ---
Anes - Eval Pre Procedure Procedure: Labor Epidural Date/Time: 04/27/25 20:57 Surgeon: Shaunna Preop Diagnosis: Labor Pain Pre Op Diagnosis: Contractions Patient Data Age: 30 Gender: F Height: 1.65 m Weight: 83 kg Last Vital Signs Temp 36.3 C L 04/27/25 19:01 Pulse 86 04/27/25 19:45 BP 120/67 04/27/25 19:45 Pulse Ox 100 04/27/25 20:56 O2 Del Method Room Air 04/27/25 19:52 Allergies Allergy/AdvReac Type Severity Reaction Status Date / Time Penicillins Allergy Mild Unknown Verified 04/27/25 19:50 Sulfa (Sulfonamide Allergy Mild unk Verified 04/27/25 19:50 Antibiotics) Home Medications ?Medication ?Instructions ?Recorded ?Confirmed ?Type hydroxyzine HCl 25 mg tablet 25 mg PO TID PRN anxiety #90 tabs 06/02/24 04/27/25 Rx fluoxetine 20 mg capsule See Rx Instructions .Route 03/05/25 04/27/25 Rx .COMPLEX #90 caps dextroamphetamine-amphetamine ER 20 mg PO DAILY #30 caps 04/06/25 04/27/25 Rx 20 mg 24hr capsule,extend release (Adderall XR) Laboratory Tests 04/27/25 19:37 WBC 11.6 H K/mm3 (4.5-10.0) RBC 3.85 L M/mm3 (4.2-5.4) Hgb 10.7 L g/dL (12.0-15.0) Hct 31.8 L % (37.0-47.0) MCV 82.6 fl (80-100) MCH 27.8 pg (26-34) MCHC 33.6 g/dl (32-36) RDW 13.8 % (11.5-14.5) Plt Count 168 k/mm3 (150-375) MPV 10.4 fl (7.4-10.4) Immature Gran % (Auto) 0.4 % (0-0.5) Neut % (Auto) 78.9 H % (45.5-73.1) Lymph % (Auto) 14.9 L % (18.3-44.2) [place] % (Auto) 5.4 % (2.6-8.5) Eos % (Auto) 0.3 % (0-4.4) Baso % (Auto) 0.1 L % (0.2-1.2) Lymph # (Auto) 1.73 K/mm3 (0.9-3.2) [place] # (Auto) 0.6 K/mm3 (0.1-0.6) Eos # (Auto) 0.0 K/mm3 (0-0.3) Baso # (Auto) 0.0 K/mm3 (0.0-0.1) Abs Immat Gran (auto) 0.05 H K/mm3 (0.00-0.031) Absolute Neuts (auto) 9.2 H K/mm3 (1.3-6.7) Absolute Nucleated RBC 0.000 K/mm3 (0.0-0.012) Nucleated RBC % 0.0 % (0.0-0.2) Syphilis IgG/IgM Ab Non-reactive (Nonreactive) Hep Bs Antigen Negative (Negative) Blood Type Pending Antibody Screen Pending Patient hx anesthesia problems: none Family hx anesthesia problems: none Results Review: All pre-operative results and documents have been reviewed as part of the pre-operative evaluation. [facility] Past Medical History Medical History Amenorrhea, primary Anemia, unspecified Suppression of menses Anxiety Irritable bowel syndrome with diarrhea Allergies Anxiety Family History Family History Grandparent Carcinoma of colon Hypertension Heart disease Mother Hypertension Father Depression Hypertension Anxiety Grandparent Depression Anxiety Hypertension Cerebrovascular accident Cancer Social History Social History Smoking status: Never smoker Second hand tobacco smoke exposure: No Alcohol intake: former Drinks per week: 4 Alcohol use details: 1-4 Substance use: never Substance use type: does not use Do You Feel Safe in your Home?: Yes Lack of Transportation: No Lack of Food: Never True Current Housing: I Have Housing Concerned About Future Housing: No Difficulty Paying Gas/Electric Bills: No Difficulty Paying for Meds: No Currently Unemployed: No Education: Master's Degree or Higher Difficulty w/ Childcare or Family Care: No Living arrangements: with family Additional living arrangements comments: Occupation/Education: occupation Additional occupation/education comments: Homemaker Gender identity (if verbalized by the patient): Female Sexual Orientation (if Verbalized by the Patient): Straight or Heterosexual Spiritual care concerns: No Agree to blood products: Yes Exam Day of Procedure 04/27/25 20:57 Patient weight: normal Heart: regular rate and rhythm Lungs: normal air movement Airway: Mallampati scale class II Neurological: alert and oriented
[2025-04-27] MEDS: OXYTOCIN 30 UNITS/NS 500 ML 30 UNITS/500 ML BAG 999 UNITS IV CONT (23:00)
--- NOTE | 2025-04-27 23:11 | WPDHPUPDATE1 ---
History and Physical Update Update Date/Time: 04/27/25 23:11 30 yo who presents at 38w4d in labor. History and Physical has been reviewed, including an updated exam of the patient. There are NO changes in the patient's condition. Risks, benefits, and alternatives have been discussed and questions answered. Patient agrees to proceed with procedure. 1. ... 2. History PPROM... 36 week delivery 3. Anxiety/ depression... fluoxetine 4. ADHD... Adderall XR 5. GBS bacturia...ab at delivery A/P: admit to L&D routine admission orders Rh + GBS +, will initiate abx continuous EFM expectant management
--- NOTE | 2025-04-27 23:12 | PM.OBPRVD ---
OB - Vaginal Delivery Note Procedure Delivery date: 04/27/25 Induction method: None Delivery monitor: External FHT and External Uterine Route of delivery: Episiotomy description: None Laceration Description: Perineal - 2nd Degree Delivery repair: vicryl Specimen: No Quantitative Blood Loss (ml): 150 Anesthesia type: Epidural Disposition: Floor Complications: No immediate complications Narrative: Patient pushed for a spontaneous vaginal delivery. The fetus was delivered atraumatically and placed on the maternal abdomen. The cord was clamped and cut after 1 minute of life. The cord was double clamped and cut and a segment of cord was collected for cord gases. Cord blood was collected for blood type and Coomb's testing. The placenta delivered spontaneously and was noted to be intact. The perineum was inspected and a 2nd degree perineal laceration was noted. The laceration was repaired with 3-0 vicryl in a running fashion. The fundus was noted to be firm and good hemostasis was noted. The mom and were stable in the delivery room. Baby Date of : 04/27/25 Time of : 22:55 Gestational Age by Date: 38 Infant gender: Male Weight (pounds): 8 Weight (ounces): 12 presentation: vertex position: Right Occiput Anterior Placenta delivery description: Spontaneous Cord Vessel Description: 3 Vessels score one minute: 8 score five minutes: 9
[2025-04-27] MEDS: OXYTOCIN 30 UNITS/NS 500 ML 30 UNITS/500 ML BAG 125 UNITS IV CONT (23:35)
[2025-04-28] VITALS (10 sets, daily range): BP systolic 106–131; BP diastolic 68–86; PULSE 69–85; RESP 16–20; TEMP 36.6–37; O2SAT 99–100
[2025-04-28 04:58] LABS: Hematocrit 30.1 % (37.0-47.0); Hemoglobin 10.0 g/dL (12.0-15.0)
[2025-04-28] MEDS: IBUPROFEN 600 MG TABLET PO ×2 (05:00→11:33)
[2025-04-28] MEDS: ACETAMINOPHEN 325 MG TABLET 650 MG PO ×4 (05:00→22:12)
--- NOTE | 2025-04-28 08:16 | WPDANLDPN2 ---
Anes-Prog Note L&D Date/Time: 04/28/25 08:16 Neuro status: Neuro function grossly intact. Vital Signs: Last Vital Signs Temp 97.9 F 04/28/25 05:00 Pulse 76 04/28/25 05:00 Resp 20 04/28/25 05:00 BP 118/71 04/28/25 05:00 Pulse Ox 99 04/28/25 05:00 O2 Del Method Room Air 04/28/25 02:08 Pain score (VAS): 0/10 I/O: Intake & Output 04/27/25 04/28/25 04/28/25 23:59 07:59 15:59 Intake Total 1066.7 Output Total 450 150 Balance 616.7 -150 Patient feedback: Patient satisfied with anesthetic care.
--- NOTE | 2025-04-28 08:45 | PC.NURSE ---
Breast pump provided due to [ in level 2]. Instructions given on cleaning, care, usage, that there should be no pain, pumping schedule for milk production, collection, and storage of human milk. Patient was assessed for correct placement, flange size, to pump for adequate milk production every 3 hours (8 times in 24 hours). Mother prefers to use the manual pump only at this time. The symphony pump is at the bedside for use if desired.?Mother voiced understanding of the education shared along with mom/baby guide for additional resource information. Reported to the Primary RN.
--- NOTE | 2025-04-28 08:46 | P.PNOB_ITS ---
OB - PN: Subj Subjective Date/time seen: 04/28/25 08:46 S: Overall doing well with minimal discomfort. Is having some diarrhea, known history of IBS. Baby level 2 nursery due to respiratory issues. O: VSS afebrile Abdomen: Positive bowel sounds soft Labs: Noted A: Overall doing well P: Lomotil for loose stools. If baby needs to be transferred she can be discharged later today. OB - PN: Obj Data Labs 04/28/25 04:50 Labs: Laboratory Results - last 24 hr 04/27/25 04/28/25 19:37 04:50 WBC 11.6 H RBC 3.85 L Hgb 10.7 L 10.0 L Hct 31.8 L 30.1 L MCV 82.6 MCH 27.8 MCHC 33.6 RDW 13.8 Plt Count 168 MPV 10.4 Immature Gran % (Auto) 0.4 Neut % (Auto) 78.9 H Lymph % (Auto) 14.9 L [place] % (Auto) 5.4 Eos % (Auto) 0.3 Baso % (Auto) 0.1 L Lymph # (Auto) 1.73 [place] # (Auto) 0.6 Eos # (Auto) 0.0 Baso # (Auto) 0.0 Abs Immat Gran (auto) 0.05 H Absolute Neuts (auto) 9.2 H Absolute Nucleated RBC 0.000 Nucleated RBC % 0.0 Syphilis IgG/IgM Ab Non-reactive Hep Bs Antigen Negative Blood Type A Positive Antibody Screen Negative OB - PN A/P Time Spent With Patient Time: Total time spent is greater than 50% in coordination of care (as documented) at patient's floor/unit and/or counseling patient:
[2025-04-28] MEDS: MULTIVIT/MIN/PREN/FOL AC/IRON TABLET 1 TAB PO (10:08)
[2025-04-29] MEDS: ACETAMINOPHEN 325 MG TABLET 650 MG PO (05:50)
[2025-04-29] MEDS: MULTIVIT/MIN/PREN/FOL AC/IRON TABLET 1 TAB PO (08:19)
[2025-04-29 08:25] VITALS: BP 134/85; PULSE 90; RESP 16; TEMP 37; O2SAT 95
--- NOTE | 2025-04-29 10:22 | PM.OBDSVD ---
DS: Admitting Diagnosis Discharge Date 04/29/2025 Admitting Diagnosis DS: Discharge Diagnosis Discharge Diagnosis (1) , delivered: Code(s): O80 - Encounter for full-term uncomplicated delivery Status: Acute OB - DS: Summary OB Procedures : None OB Procedures Intrapartum: Spontaneous Vag Delivery OB Procedures: : None Peripartum Data Laceration Description: Perineal - 2nd Degree Episiotomy description: None Time Spent with Patient Time attestation: Total time spent providing and/or coordinating discharge services: Discharge Plan Discharge Discharging Clinician: Gopal Mooney Patient Disposition: Home Activity: as tolerated and pelvic rest Diet: as tolerated Patient Instructions: Antibiotic Form Patient Language: Sinhala Stand Alone Forms: General Discharge Information Follow-up/Referrals: Gopal Mooney MD [Physician, [employer]] - 4 Weeks Discharge Medications: New ibuprofen 600 mg Tablet 600 mg PO Q6H PRN (Reason: Cramping) Qty: 30 0RF Continued hydroxyzine HCl 25 mg tablet 25 mg PO TID PRN (Reason: anxiety) Qty: 90 0RF fluoxetine 20 mg capsule See Rx Instructions .ROUTE .COMPLEX Qty: 90 0RF Dose Instruction: TAKE 1 CAPSULE BY MOUTH EVERY EVENING Rx Instructions: TAKE 1 CAPSULE BY MOUTH EVERY EVENING dextroamphetamine-amphetamine [Adderall XR] 20 mg capsule,extended release 24hr 20 mg PO DAILY Qty: 30 0RF Date of admission: 04/27/25 18:56 Primary Care Provider: Erin Murphy Admitting Provider: Gopal Mooney Attending physician on admission: Gopal Mooney Condition: Stable
--- NOTE | 2025-04-29 10:40 | PC.NURSE ---
Primary RN consulted with mother concerning needs and she shared her ability to independently latch optimally without pain. Per mother she is also using her breast pump as well, primary RN encouraged mother to use breast pump if infant is not able to go to breast, is being transferred to the NICU. Mother is feeding appropriately for growth of infant and understands stimulating infant to eat if needed. has had appropriate feedings in the last 24 hours meets the outcomes for weight, output, blood sugar and jaundice at this time. Reinforced understanding of milk production, transition of milk, signs of adequate intake, transition of stool, prevention/relief of engorgement, plugged ducts, mastitis, responsive watching for feeding cues, the different methods of stimulating to breastfeed 1-3 hours after the start of the last feeding, community resources, and when to call a provider using the resource of the feeding sheet along with the mom and baby guide. Mother voiced understanding of the information shared, is confident to continue effectively her infant or use her breast pump, when to call for assistance, denies any additional assistance or education at this time. Primary RN reported this the the [facility] RN.
== END 2025-04-29 11:40 | disposition home or self-care (01) | DRG 807 ==
LOC: ANHLDR 19:22 → ANHOB2 04-28 01:42
PROVIDERS: Admitting Provider Student in an Organized Health Care Education/Training Program; PCP Nurse Practitioner Adult Health; Visit Provider Obstetrics & Gynecology
DX: O99.824 Streptococcus B carrier state complicating childbirth (principal); Z37.0 Single live birth; Z3A.38 38 weeks gestation of pregnancy; O99.344 Other mental disorders complicating childbirth; F41.9 Anxiety disorder, unspecified; F32.A Depression, unspecified; F90.9 Attention-deficit hyperactivity disorder, unspecified type; O99.62 Diseases of the digestive system complicating childbirth; K58.0 Irritable bowel syndrome with diarrhea; O70.1 Second degree perineal laceration during delivery
CPT/HCPCS: 36415; 85014; 85018; 85025; 86593; 86850; 86900; 86901; 87340; J0690; A9270; J2590; J2795; J7120